=== PATIENT | male | born 1970 | race American Indian/Alaskan Native ===

== ENCOUNTER 2017-06-03 13:22 | Outpatient (CLI) | payer OTHER ==
[2017-06-03] MEDS ORDERED: PROVENTIL IH ONE (14:23)
== END 2017-06-03 13:23 | disposition home or self-care (01) ==
LOC: PF 13:22
PROVIDERS: ATTEND Internal Medicine
DX: J98.9 Respiratory disorder, unspecified (principal); R06.00 Dyspnea, unspecified; R05 Cough; I12.9 Hypertensive chronic kidney disease with stage 1 through stage 4 chronic kidney disease, or unspecified chronic kidney disease; N18.3 Chronic kidney disease, stage 3 (moderate); Z87.891 Personal history of nicotine dependence
CPT/HCPCS: 94060; 94726; 94729

== ENCOUNTER 2017-09-09 08:00 | Outpatient (CLI) | payer OTHER ==
--- NOTE | 2017-09-09 14:49 | Magnetic Resonance Report ---
MR CERVICAL SPINE WITHOUT CONTRAST HISTORY: Left neck and arm pain. TECHNIQUE: Multisequence, multiplanar MRI without IV gadolinium. COMPARISON: None. FINDINGS: The cervical spinal cord is normal size and signal intensity throughout. No mass or abnormal intramedullary signal. Normal height and alignment of the cervical vertebral bodies. Normal bone marrow signal. Mild disc desiccation is present throughout the cervical region. The facet joints are unremarkable. 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 C2-3: No abnormality. C3-4: No abnormality. C4-5: A mild diffuse posterior bulging disc is identified. Mild right uncovertebral spurring. There is mild central canal narrowing measuring 7.7 mm in AP dimension. Moderate right neural foraminal narrowing estimated at 50-75%. C5-6: A mild diffuse posterior bulging disc is identified. There is mild central canal narrowing measuring 7.4 mm in AP dimension. No significant neural foraminal narrowing. C6-7: No abnormality. C7-T1: No abnormality. IMPRESSION: Mild to moderate posterior bulging discs at C4-5 and C5-6 as described. Mild central canal narrowing is present at these levels. Moderate right neural foraminal narrowing at C4-5.
== END 2017-09-09 08:01 | disposition home or self-care (01) ==
LOC: MRI 08:00
PROVIDERS: ATTEND Internal Medicine
DX: M50.221 Other cervical disc displacement at C4-C5 level (principal); M50.222 Other cervical disc displacement at C5-C6 level; M54.12 Radiculopathy, cervical region; I12.9 Hypertensive chronic kidney disease with stage 1 through stage 4 chronic kidney disease, or unspecified chronic kidney disease; N18.3 Chronic kidney disease, stage 3 (moderate)
CPT/HCPCS: 72141

== ENCOUNTER 2018-03-03 08:03 | Day surgery (SDC) | payer OTHER ==
[2018-03-03 10:33] LABS: Basophils # (Auto) 0.1 K/mm3 (0.0-0.1); Basophils % (Auto) 0.9 % (0.0-1.8); Eosinophils # (Auto) 0.9 K/mm3 (0.0-0.4); Eosinophils % (Auto) 10.9 % (0.0-4.3); Hematocrit 53.2 % (35.5-45.6); Lymphocytes # (Auto) 1.9 K/mm3 (1.2-5.4); Lymphocytes % (Auto) 22.7 % (13.4-35.0); Mean Corpuscular HGB Conc 34 % (32-34); Mean Corpuscular Hemoglobin 32 pg (28-32); Mean Corpuscular Volume 93 fl (84-94); Monocytes # (Auto) 0.7 K/mm3 (0.0-0.8); Monocytes % (Auto) 9.1 % (0.0-7.3); Red Cell Distribution Width 13.8 % (13.2-15.2)
[2018-03-03 10:35] LABS: Platelet Count 181 K/mm3 (140-440)
[2018-03-03 11:00] LABS: INR 1.01 (0.87-1.13); Partial Thromboplastin Time 22.6 Sec. (24.2-36.6)
[2018-03-03] MEDS ORDERED: XYLOCAINE 1% 20 mL ONE (11:44)
--- NOTE | 2018-03-03 13:30 | Fluoroscopy Report ---
FLUOROSCOPY MYELOGRAM CERVICAL History: Spinal stenosis, left upper extremity radiculopathy. Description of procedure: Informed consent was obtained. Sterile technique was utilized. 1% lidocaine for skin anesthesia. Using fluoroscopy guidance, lumbar puncture was performed at the L2-3 level. No fluoroscopic images were saved however a crosstable lateral view demonstrates good placement. There was spontaneous return of clear CSF. Approximately 12 cc of Omnipaque 380 was administered intrathecally. The contrast agent was free flowing to the cervical region. There was suggestion of a prominent anterior epidural defect at the level of the C5-6. Please await the formal CT myelogram report. Impression: Anterior epidural defect at C5-6 as described.
[2018-03-03 14:53] VITALS: BP 155/99
--- NOTE | 2018-03-04 07:55 | Short Stay Summary ---
Short Stay Documentation Date of service: 03/03/18 - History Principal diagnosis: cervical radiculopathy, left side H&P: dictated Past Medical History: No medical history - Allergies and Medications Current Medications: Allergies No Known Allergies Allergy (Unverified 03/10/15 07:36) Home Medications Medication Instructions Recorded Confirmed Last Taken Type Acetaminophen 325 mg PO BID 03/03/18 03/03/18 03/02/18 History 325 mg Carvedilol [Coreg] 12.5 mg PO BID 03/03/18 03/03/18 03/02/18 History 12.5 Fluticasone Propionate [Flovent 50 mcg IH BID 03/03/18 03/03/18 03/02/18 History Diskus] 1 spray Furosemide [Lasix TAB] 20 mg PO DAILY 03/03/18 03/03/18 03/02/18 History 20 mg Hydralazine HCl 50 mg PO BID 03/03/18 03/03/18 03/02/18 History Ipratropium (Nf) [Atrovent HFA 17 mcg INHALATION QID 03/03/18 03/03/18 03/03/18 History 17MCG/PUFF] 2 puffs amLODIPine 10 mg PO DAILY 03/03/18 03/03/18 03/02/18 History 10 mg - Physical exam General appearance: no acute distress HEENT: Atraumatic Lungs: Clear to auscultation Heart: Regular rate Extremities: pulses intact, pulses symmetrical, No edema, Full ROM - Brief post op/procedure progress note Date of procedure: 03/04/18 Pre-op diagnosis: cervical radiculopathy Post-op diagnosis: same Procedure: flouroscopy guided cervical myelogram Anesthesia: local Findings: see report Surgeon: SANDEEP BALL Estimated blood loss: none Pathology: none Condition: stable - Hospital course Hospital course: uneventful - Disposition Condition at discharge: Good Short Stay Discharge Plan Additional Instructions: follow up with Primary Medical Doctor in 1 week, return to Emergency Room (ER) for medical emergencies. Follow up with: KIMBERLI MADRIGAL MD [Primary Care Provider] - 7 Days
--- NOTE | 2018-03-04 08:05 | Cat Scan Report ---
CT CERVICAL SPINE WITH CONTRAST HISTORY: Spinal stenosis. TECHNIQUE: Helical CT is following intrathecal contrast administration. Sagittal and coronal reformatted images. COMPARISON: MR cervical spine without contrast performed 09/09/17. FINDINGS: There is normal height and alignment of the cervical vertebral bodies. No evidence for fracture or bone lesion. Mild disc space narrowing at C4-5 and C5-6 is noted. The remaining levels are within normal limits. The posterior elements are in appropriate relationship. Congenitally short pedicles are again noted. The facet joints are unremarkable. No significant arthritic changes or hypertrophy. C2-3: Normal. C3-4: Normal. C4-5: Mild bilateral uncovertebral spurring is identified. A mild posterior bulging disc lateralizes to the right side. There is mild central canal narrowing measuring 8 mm in AP dimension. Moderate right neural foraminal narrowing is estimated at 50-75%. These findings appear stable since the previous MR. C5-6: Mild bilateral uncovertebral spurring. A moderate broad-based central disc protrusion is identified which abuts and mildly displaces the anterior spinal cord. There is moderate central canal narrowing measuring 7.3 mm in AP dimension. Mild bilateral neural foraminal narrowing is estimated at 25%. There appears to be mild progression of disease at C5-6 and so previous MR. C6-7: Normal. C7-T1: Normal. IMPRESSION: Mild to moderate bulging discs and uncovertebral spurring is identified at C4-5 and C5-6 resulting in central canal narrowing. C4-5 appears stable since the MR cervical spine performed 09/09/17. Bulging disc at C5-6 appears increased since the previous MR. Please see above. Congenitally short pedicles are noted in this patient.
== END 2018-03-03 14:57 ==
LOC: CATHLABREC 08:03 → EDSTATUS 09:00 → CATHLABREC 14:57
PROVIDERS: ATTEND Internal Medicine
DX: M50.222 Other cervical disc displacement at C5-C6 level (principal); M48.02 Spinal stenosis, cervical region; I10 Essential (primary) hypertension; R63.5 Abnormal weight gain; Z87.891 Personal history of nicotine dependence; Z79.899 Other long term (current) drug therapy; Z79.01 Long term (current) use of anticoagulants
CPT/HCPCS: 36415; 62302; 72126; 85025; 85610; 85730; Q9967